=== PATIENT | female | born 1965 | race American Indian/Alaskan Native ===

== ENCOUNTER 2021-02-06 13:12 | Inpatient (IN) | payer MEDICAID, MEDICARE ==
[2021-02-06] VITALS (12 sets, daily range): BP systolic 140–198; BP diastolic 47–111
[~2021-02-06] VITALS: Ht 162.6 cm; Wt 83.4 kg
[2021-02-06] MEDS ORDERED: heparin 25,000 UNIT/250ml bag 250 ML IV SCH (13:35)
[2021-02-06] MEDS ORDERED: MYCO360T3 PO (13:49)
[2021-02-06] MEDS ORDERED: CLOP75TA34 PO (13:49)
[2021-02-06] MEDS ORDERED: ASPI-1475 PO (13:49)
[2021-02-06] MEDS ORDERED: ERGO500054 PO (13:49)
[2021-02-06] MEDS ORDERED: TACR0.5C20 PO (13:49)
[2021-02-06] MEDS ORDERED: FURO20TA4 PO (13:49)
[2021-02-06] MEDS ORDERED: TACR0.5C3 PO (13:49)
[2021-02-06] MEDS ORDERED: PRAV40TA3 PO (13:49)
[2021-02-06] MEDS ORDERED: OMEP-50 PO (13:49)
--- NOTE | 2021-02-06 13:57 | NUR ---
MD STATES TO START HEPARIN AT 1000UNITS/HR AND DRAW PPT NOW
[2021-02-06 14:06] LABS: BASOPHILS # (AUTO) 0.1 X10'3 (0-0.2); EOSINOPHILS # (AUTO) 0.1 X10'3 (0-0.9); EOSINOPHILS % (AUTO) 1.3 % (0-6); HEMOGLOBIN 14.3 g/dl (12.0-16.0); LYMPHOCYTES # (AUTO) 2.3 X10'3 (1.1-4.8); MEAN CORPUSCULAR HEMOGLOBIN 30.2 PG (27.0-31.0); MEAN CORPUSCULAR HGB CONC 33.2 g/dL (33.0-36.5); MEAN PLATELET VOLUME 9.4 FL (7.4-10.4); MONOCYTES # (AUTO) 0.9 X10'3 (0-0.9); MONOCYTES % (AUTO) 8.7 % (2-12); NEUTROPHILS # (AUTO) 7.1 X10'3 (1.8-7.7); PLATELET COUNT 244 X10'3 (140-440); RED BLOOD COUNT 4.73 X10'6 (4.20-5.60); RED CELL DISTRIBUTION WIDTH 14.7 % (11.5-14.5); WHITE BLOOD COUNT 10.7 X10'3 (4.5-11.0)
[2021-02-06 14:19] LABS: PARTIAL THROMBOPLASTIN TIME 59 SECONDS (22-32)
[2021-02-06 14:21] LABS: ALANINE AMINOTRANSFERASE 31 U/L (12-78); ALBUMIN 2.3 G/DL (3.4-5.0); ALBUMIN/GLOBULIN RATIO 0.6 (1.1-1.5); ALKALINE PHOSPHATASE 109 IU/L (46-116); ANION GAP 10 (8-16); ASPARTATE AMINO TRANSFERASE 45 U/L (10-37); BILIRUBIN,TOTAL 0.4 MG/DL (0.1-1.0); BLOOD UREA NITROGEN 17 MG/DL (7-18); BUN/CREATININE RATIO 9.6 (6.6-38.0); CALCIUM 8.4 MG/DL (8.5-10.1); CHLORIDE 111 MMOL/L (99-107); CREATININE 1.78 MG/DL (0.40-0.90); GLUCOSE 102 MG/DL (70-104); POTASSIUM 3.7 MMOL/L (3.5-5.1); SODIUM 143 MMOL/L (135-145); TOTAL CARBON DIOXIDE 22.5 MMOL/L (24-32); TOTAL PROTEIN 6.1 G/DL (6.4-8.2); eGFR 29 ML/MIN
[2021-02-06 14:27] LABS: MAGNESIUM 1.9 MG/DL (1.5-2.4)
[2021-02-06] MEDS ORDERED: normal saline 1000ML IV soln IVB ONE (14:40)
[2021-02-06] MEDS ORDERED: normal saline 1000ml 1,000 ML IV ONE (14:40)
[2021-02-06] MEDS ORDERED: midazolam 1 mg/ML 2ml injection ONE ×2 (15:01→15:44)
[2021-02-06] MEDS ORDERED: fentaNYL/PF 50MCG/1 ML 2ML syringe ONE (15:01)
[2021-02-06] MEDS ORDERED: iohexol 350 MG/ML 50ML vial IV ONE (15:01)
[2021-02-06] MEDS ORDERED: LIDOcaine 1% (10mg/ml)w/preservative injection 20ml MDV ONE (15:01)
[2021-02-06] MEDS ORDERED: heparin 1,000unit/ml 10ml vial 10 ML ONE (15:01)
[2021-02-06] MEDS ORDERED: iohexol 350MG/ML 100ml bottle IV ONE (15:02)
[2021-02-06] MEDS ORDERED: nitroGLYCERIN-Tridil 50MG/D5W 250 ML IV ONE (15:36)
[2021-02-06] MEDS ORDERED: proCHLORperazine 10 MG/2 ml inj IV PRN (17:15)
[2021-02-06] MEDS ORDERED: ondansetron/PF 4mg/2ml inj IV PRN (17:15)
[2021-02-06] MEDS ORDERED: nitroGLYCERIN 0.4mg SUBLingual tab SL PRN (17:15)
[2021-02-06] MEDS ORDERED: HYDROcodone/acetaminophen 5mg/325mg tablet PO PRN (17:15)
[2021-02-06] MEDS ORDERED: OXAZEpam 15mg capsule PO PRN (17:15)
[2021-02-06] MEDS ORDERED: HYDROcodone/acetaminophen 10/325mg tab PO PRN (17:15)
[2021-02-06] MEDS ORDERED: aspirin 81mg tab.chew PO ONE (17:18)
[2021-02-06] MEDS ORDERED: aspirin 81mg tab.chew PO SCH (17:18)
[2021-02-06] MEDS ORDERED: cyclobenzaprine 10mg tablet PO PRN (17:20)
[2021-02-06] MEDS ORDERED: magnesium hydroxide 30ml (MOM) UD suspension PO PRN (17:20)
[2021-02-06] MEDS ORDERED: acetaminophen 325mg tablet PO PRN ×2 (17:20)
[2021-02-06] MEDS ORDERED: morphine 4 MG/ML inj SYRINge IV PRN ×2 (17:25)
[2021-02-06] MEDS ORDERED: furosemide 20MG tablet PO PRN (17:30)
--- NOTE | 2021-02-06 18:49 | NUR ---
Problems reprioritized. Patient report given, questions answered & plan of care reviewed with ERON Kenny.
--- NOTE | 2021-02-06 19:35 | NUR ---
TROPONIN AND EKG CANCELLED IN ORDERS, ARUN FROM LAB STATED THAT THEY WERE CANCELLED REMOTELY AND THEY WERE NOT REQUIRED.
[2021-02-06] MEDS: docusate sod 100mg capsule PO SCH (20:00)
[2021-02-06] MEDS ORDERED: loperamide 2mg capsule PO PRN (21:35)
[2021-02-06] MEDS: mycophenolate sod SR tablet 180 MG TABLET.DR PO SCH (21:42)
[2021-02-06] MEDS: tacrolimus anhydrous 0.5mg capsule PO SCH (21:44)
[2021-02-06] MEDS: metoprolol succinate 25mg (24-HOUR) SR. Tablet PO SCH (21:44)
--- NOTE | 2021-02-06 22:30 | NUR ---
PT GOT UP AND USED RESTROOM WHILE ON POSTOP CATH PRECAUTIONS.
[2021-02-07 02:00] VITALS: BP 139/54
--- NOTE | 2021-02-07 06:20 | NUR ---
Patient in room MED 309. I have received report from ERON Kenny and had the opportunity to ask questions and assume patient care.
--- NOTE | 2021-02-07 06:30 | NUR ---
Problems reprioritized. Patient report given, questions answered & plan of care reviewed with MACKENZIE/WARREN-ERON.
--- NOTE | 2021-02-07 06:42 | NUR ---
Patient in room MED 309. I have received report from ERON SIN, and had the opportunity to ask questions and assume patient care.
[2021-02-07 06:47] VITALS: BP 158/53
[2021-02-07] MEDS ORDERED: aspirin 81mg tablet.DR PO SCH (08:00)
[2021-02-07] MEDS: enoxaparin 30mg/0.3ml syringe SQ SCH (08:40)
[2021-02-07] MEDS: pravastatin 40mg tablet PO SCH (08:41)
[2021-02-07] MEDS: docusate sod 100mg capsule PO SCH ×2 (08:41→20:00)
[2021-02-07] MEDS: metoprolol succinate 25mg (24-HOUR) SR. Tablet PO SCH ×2 (08:41→19:36)
[2021-02-07] MEDS: mycophenolate sod SR tablet 180 MG TABLET.DR PO SCH ×2 (08:41→19:36)
[2021-02-07] MEDS: aspirin 81mg tablet.DR PO SCH (08:43)
[2021-02-07] MEDS: pantoprazole 40mg Tablet.DR PO SCH (08:43)
[2021-02-07 10:00] LABS: BASOPHILS # (AUTO) 0.1 X10'3 (0-0.2); BASOPHILS % (AUTO) 1.1 % (0-1); EOSINOPHILS # (AUTO) 0.2 X10'3 (0-0.9); HEMOGLOBIN 13.6 g/dl (12.0-16.0); LYMPHOCYTES # (AUTO) 1.7 X10'3 (1.1-4.8); LYMPHOCYTES % (AUTO) 21.1 % (21-51); MEAN CORPUSCULAR HEMOGLOBIN 30.1 PG (27.0-31.0); MEAN CORPUSCULAR HGB CONC 33.1 g/dL (33.0-36.5); MEAN CORPUSCULAR VOLUME 90.8 FL (78-98); MEAN PLATELET VOLUME 9.1 FL (7.4-10.4); MONOCYTES # (AUTO) 0.7 X10'3 (0-0.9); MONOCYTES % (AUTO) 8.4 % (2-12); NEUTROPHILS # (AUTO) 5.3 X10'3 (1.8-7.7); NEUTROPHILS % (AUTO) 67.4 % (42-75); PLATELET COUNT 202 X10'3 (140-440); RED BLOOD COUNT 4.52 X10'6 (4.20-5.60); RED CELL DISTRIBUTION WIDTH 14.7 % (11.5-14.5); WHITE BLOOD COUNT 7.9 X10'3 (4.5-11.0)
[2021-02-07 10:22] LABS: ALANINE AMINOTRANSFERASE 23 U/L (12-78); ALBUMIN/GLOBULIN RATIO 0.5 (1.1-1.5); ALKALINE PHOSPHATASE 103 IU/L (46-116); ANION GAP 12 (8-16); ASPARTATE AMINO TRANSFERASE 36 U/L (10-37); BILIRUBIN,TOTAL 0.3 MG/DL (0.1-1.0); BLOOD UREA NITROGEN 15 MG/DL (7-18); BUN/CREATININE RATIO 7.7 (6.6-38.0); CALCIUM 8.4 MG/DL (8.5-10.1); CHLORIDE 108 MMOL/L (99-107); CREATININE 1.96 MG/DL (0.40-0.90); GLUCOSE 196 MG/DL (70-104); MAGNESIUM 1.6 MG/DL (1.5-2.4); PHOSPHORUS 3.7 MG/DL (2.3-4.5); POTASSIUM 3.8 MMOL/L (3.5-5.1); SODIUM 140 MMOL/L (135-145); TOTAL CARBON DIOXIDE 20.5 MMOL/L (24-32); TOTAL PROTEIN 5.7 G/DL (6.4-8.2); eGFR 26 ML/MIN
[2021-02-07 11:00] VITALS: BP 156/84
[2021-02-07] MEDS: tacrolimus anhydrous 0.5mg capsule PO SCH ×2 (11:05→19:35)
--- NOTE | 2021-02-07 11:10 | NUR ---
DM consult: Pt with A1c 6.6%, DM education not warranted at this time. Will continue to follow. Addendum: 02/07/21 at [address] Amended: Links added.
--- NOTE | 2021-02-07 13:30 | NUR ---
Per MD Benton - no need for ACHS accuchecks at this time d/t AIC 6.6.
[2021-02-07 15:00] VITALS: BP 136/62
[2021-02-07 18:00] VITALS: BP 164/81
--- NOTE | 2021-02-07 18:21 | NUR ---
Patient in room MED 310. I have received report from Amanda/Dianna-ERON and had the opportunity to ask questions and assume patient care.
--- NOTE | 2021-02-07 18:22 | NUR ---
Problems reprioritized. Patient report given, questions answered & plan of care reviewed with ERON SIN.
--- NOTE | 2021-02-07 18:22 | NUR ---
[place] documentation: I have reviewed and agree with all interventions, assessments performed and documented by ERON Bustamante.
[2021-02-07] MEDS: clopidogrel 75mg tablet PO SCH (19:35)
[2021-02-07 21:06] LABS: CLARITY,URINE CLEAR (Clear); COLOR,URINE YELLOW (Yellow); GLUCOSE, URINE 100 mg/dl (Neg); KETONES,URINE NEGATIVE (Neg); LEUKOCYTE ESTERASE ,URINE NEGATIVE (Neg); NITRITES, URINE NEGATIVE (Neg); OCCULT BLOOD,URINE TRACE-INTACT (Neg); PH,URINE 6.5 (4.8-8.0); PROTEIN,URINE >=300 mg/dl (Neg); UROBILINOGEN,URINE 0.2 E.U/dL (0.2-1.0)
[2021-02-07 21:12] LABS: UA COLLECTION TYPE NON-SPECIFIED
[2021-02-07 21:13] LABS: BACTERIA,URINE NONE SEEN /HPF (Neg); RBC,URINE 0-2 /HPF (0-2); SQUAMOUS EPITHELIAL CELL,UR FEW /LPF (FEW); WBC,URINE 0-4 /HPF (0-4)
[2021-02-07 21:26] LABS: TOTAL PROTEIN,URINE RANDOM 491.6 MG/DL
[2021-02-07 21:39] LABS: UA EOSINOPHILS NO EOS /HPF
[2021-02-07 22:00] VITALS: BP 149/50
[2021-02-08] VITALS (7 sets, daily range): BP systolic 117–182; BP diastolic 55–94
[2021-02-08 06:18] LABS: BASOPHILS # (AUTO) 0.1 X10'3 (0-0.2); BASOPHILS % (AUTO) 1.4 % (0-1); EOSINOPHILS # (AUTO) 0.3 X10'3 (0-0.9); EOSINOPHILS % (AUTO) 3.5 % (0-6); HEMATOCRIT 40.3 % (35.0-45.0); HEMOGLOBIN 13.2 g/dl (12.0-16.0); LYMPHOCYTES # (AUTO) 2.4 X10'3 (1.1-4.8); LYMPHOCYTES % (AUTO) 31.3 % (21-51); MEAN CORPUSCULAR HEMOGLOBIN 30.1 PG (27.0-31.0); MEAN CORPUSCULAR HGB CONC 32.7 g/dL (33.0-36.5); MEAN CORPUSCULAR VOLUME 91.9 FL (78-98); MEAN PLATELET VOLUME 9.7 FL (7.4-10.4); MONOCYTES # (AUTO) 0.9 X10'3 (0-0.9); MONOCYTES % (AUTO) 11.8 % (2-12); NEUTROPHILS # (AUTO) 4.1 X10'3 (1.8-7.7); PLATELET COUNT 218 X10'3 (140-440); RED BLOOD COUNT 4.39 X10'6 (4.20-5.60); RED CELL DISTRIBUTION WIDTH 14.6 % (11.5-14.5); WHITE BLOOD COUNT 7.8 X10'3 (4.5-11.0)
[2021-02-08 06:30] LABS: ALANINE AMINOTRANSFERASE 22 U/L (12-78); ALBUMIN 1.9 G/DL (3.4-5.0); ALBUMIN/GLOBULIN RATIO 0.5 (1.1-1.5); ALKALINE PHOSPHATASE 93 IU/L (46-116); ANION GAP 11 (8-16); ASPARTATE AMINO TRANSFERASE 26 U/L (10-37); BILIRUBIN,TOTAL 0.3 MG/DL (0.1-1.0); BLOOD UREA NITROGEN 15 MG/DL (7-18); BUN/CREATININE RATIO 7.3 (6.6-38.0); CALCIUM 8.4 MG/DL (8.5-10.1); CHLORIDE 110 MMOL/L (99-107); CREATININE 2.05 MG/DL (0.40-0.90); GLUCOSE 96 MG/DL (70-104); MAGNESIUM 1.8 MG/DL (1.5-2.4); PHOSPHORUS 3.5 MG/DL (2.3-4.5); POTASSIUM 3.5 MMOL/L (3.5-5.1); SODIUM 141 MMOL/L (135-145); TOTAL CARBON DIOXIDE 20.1 MMOL/L (24-32); TOTAL PROTEIN 5.7 G/DL (6.4-8.2); eGFR 25 ML/MIN
--- NOTE | 2021-02-08 07:00 | NUR ---
Problems reprioritized. Patient report given, questions answered & plan of care reviewed with Pat-RN.
[2021-02-08] MEDS: clopidogrel 75mg tablet PO SCH (07:49)
[2021-02-08] MEDS: aspirin 81mg tablet.DR PO SCH (07:50)
[2021-02-08] MEDS: pravastatin 40mg tablet PO SCH (07:51)
[2021-02-08] MEDS: pantoprazole 40mg Tablet.DR PO SCH (07:52)
[2021-02-08] MEDS: metoprolol succinate 25mg (24-HOUR) SR. Tablet PO SCH ×2 (07:52→20:51)
[2021-02-08] MEDS: docusate sod 100mg capsule PO SCH ×2 (07:56→20:51)
[2021-02-08] MEDS: mycophenolate sod SR tablet 180 MG TABLET.DR PO SCH ×2 (08:00→20:51)
[2021-02-08] MEDS: enoxaparin 30mg/0.3ml syringe SQ SCH (08:01)
[2021-02-08] MEDS: tacrolimus anhydrous 0.5mg capsule PO SCH ×2 (14:08→20:51)
--- NOTE | 2021-02-08 18:00 | NUR ---
Patient in room MED 309. I have received report from Jasmine LITTLEJOHN and had the opportunity to ask questions and assume patient care.
[2021-02-09 02:08] VITALS: BP 169/61
--- NOTE | 2021-02-09 02:16 | NUR ---
desreguard 1000 ml output at 0215 was documented in error on wrong pt
--- NOTE | 2021-02-09 02:56 | NUR ---
Pt supposed to go to [facility]. was told in report that pt had a bed. Paperwork was sent over via fax and spoke to Corrine (nursing forest supervisor) from facility after report was received from day shift. When I called to confirm for bed availability, Corrine mentioned that there is not bed ready yet for the patient but they will most likely have one the next day. Notified sand caster apprentice Jude about this and will pass this on to the morning RN
[2021-02-09 06:00] VITALS: BP 143/72
--- NOTE | 2021-02-09 06:08 | NUR ---
Problems reprioritized. Patient report given, questions answered & plan of care reviewed with Carolyn LITTLEJOHN.
[2021-02-09 06:11] LABS: BASOPHILS # (AUTO) 0.1 X10'3 (0-0.2); EOSINOPHILS # (AUTO) 0.3 X10'3 (0-0.9); HEMATOCRIT 40.3 % (35.0-45.0); HEMOGLOBIN 13.6 g/dl (12.0-16.0); LYMPHOCYTES # (AUTO) 2.1 X10'3 (1.1-4.8); MEAN CORPUSCULAR HEMOGLOBIN 31.1 PG (27.0-31.0); MEAN CORPUSCULAR HGB CONC 33.8 g/dL (33.0-36.5); MONOCYTES # (AUTO) 0.8 X10'3 (0-0.9); MONOCYTES % (AUTO) 10.6 % (2-12); NEUTROPHILS # (AUTO) 3.9 X10'3 (1.8-7.7); NEUTROPHILS % (AUTO) 54.4 % (42-75); PLATELET COUNT 215 X10'3 (140-440); RED BLOOD COUNT 4.38 X10'6 (4.20-5.60); RED CELL DISTRIBUTION WIDTH 14.1 % (11.5-14.5); WHITE BLOOD COUNT 7.1 X10'3 (4.5-11.0)
[2021-02-09 06:39] LABS: ALANINE AMINOTRANSFERASE 15 U/L (12-78); ALBUMIN/GLOBULIN RATIO 0.5 (1.1-1.5); ALKALINE PHOSPHATASE 92 IU/L (46-116); ANION GAP 11 (8-16); ASPARTATE AMINO TRANSFERASE 22 U/L (10-37); BILIRUBIN,TOTAL 0.2 MG/DL (0.1-1.0); BLOOD UREA NITROGEN 17 MG/DL (7-18); BUN/CREATININE RATIO 8.6 (6.6-38.0); CALCIUM 8.5 MG/DL (8.5-10.1); CHLORIDE 109 MMOL/L (99-107); CREATININE 1.97 MG/DL (0.40-0.90); GLUCOSE 132 MG/DL (70-104); MAGNESIUM 1.9 MG/DL (1.5-2.4); PHOSPHORUS 3.7 MG/DL (2.3-4.5); POTASSIUM 3.7 MMOL/L (3.5-5.1); SODIUM 141 MMOL/L (135-145); TOTAL CARBON DIOXIDE 20.7 MMOL/L (24-32); TOTAL PROTEIN 5.7 G/DL (6.4-8.2); eGFR 26 ML/MIN
[2021-02-09] MEDS: clopidogrel 75mg tablet PO SCH (09:47)
[2021-02-09] MEDS: aspirin 81mg tablet.DR PO SCH (09:47)
[2021-02-09] MEDS: pantoprazole 40mg Tablet.DR PO SCH (09:47)
[2021-02-09] MEDS: mycophenolate sod SR tablet 180 MG TABLET.DR PO SCH (09:47)
[2021-02-09] MEDS: docusate sod 100mg capsule PO SCH (09:48)
[2021-02-09] MEDS: metoprolol succinate 25mg (24-HOUR) SR. Tablet PO SCH (09:48)
[2021-02-09] MEDS: pravastatin 40mg tablet PO SCH (09:48)
[2021-02-09] MEDS: enoxaparin 30mg/0.3ml syringe SQ SCH (09:49)
[2021-02-09] MEDS: tacrolimus anhydrous 0.5mg capsule PO SCH (09:56)
[2021-02-09] MEDS ORDERED: ergocalciferol (vit D2) capsule 50,000 UNITS (1,250mcg) CAPSULE PO SCH (10:00)
[2021-02-09 11:00] VITALS: BP 149/71
--- NOTE | 2021-02-09 11:28 | NUR ---
Paged Dr. Benton regarding patient wanting to leave AMA or be discharged. PAGER ID: [phone] MESSAGE: [phone]. Aziza Nelson. Patient wants to leave AMA or be discharged home. Thank you. Lorelei LITTLEJOHN x [phone]
[2021-02-09] MEDS ORDERED: METO-395 PO (11:38)
[2021-02-09] MEDS ORDERED: CLOP75TA34 PO (11:57)
== END 2021-02-09 15:10 | disposition short-term general hospital (02) | DRG 190 ==
LOC: ER 13:12 → MED 3N 16:48
PROVIDERS: ADMIT Internal Medicine Cardiovascular Disease; ATTEND Internal Medicine Cardiovascular Disease
PROC: 4A023N7 Measurement of Cardiac Sampling and Pressure, Left Heart, Percutaneous Approach (ICD-10-PCS; principal; 2021-02-06)
PROC: B2151ZZ Fluoroscopy of Left Heart using Low Osmolar Contrast (ICD-10-PCS; 2021-02-06)
PROC: B2111ZZ Fluoroscopy of Multiple Coronary Arteries using Low Osmolar Contrast (ICD-10-PCS; 2021-02-06)
PROC: B2181ZZ Fluoroscopy of Left Internal Mammary Bypass Graft using Low Osmolar Contrast (ICD-10-PCS; 2021-02-06)
DX: I21.4 Non-ST elevation (NSTEMI) myocardial infarction (principal); E11.40 Type 2 diabetes mellitus with diabetic neuropathy, unspecified; E11.22 Type 2 diabetes mellitus with diabetic chronic kidney disease; Z94.83 Pancreas transplant status; E78.5 Hyperlipidemia, unspecified; I12.9 Hypertensive chronic kidney disease with stage 1 through stage 4 chronic kidney disease, or unspecified chronic kidney disease; N18.9 Chronic kidney disease, unspecified; K21.9 Gastro-esophageal reflux disease without esophagitis; I25.10 Atherosclerotic heart disease of native coronary artery without angina pectoris; I25.2 Old myocardial infarction; Z88.5 Allergy status to narcotic agent; Z90.49 Acquired absence of other specified parts of digestive tract; Z94.0 Kidney transplant status; Z88.8 Allergy status to other drugs, medicaments and biological substances; Z79.899 Other long term (current) drug therapy; Z79.82 Long term (current) use of aspirin; Z91.011 Allergy to milk products
CPT/HCPCS: 36415; 71045; 80053; 81001; 82570; 82948; 83036; 83735; 83880; 84100; 84156; 84300; 84484; 85025; 85347; 85610; 85730; 87081; 87207; 93005; 93458; 93459; 93880; 93971; 96361; 96365; 99152; 99153; 99291; A4620; A6258; C1760; C1769; G0378; J1644; J1650; J2001; J2250; J3010; J3490; J7030; J7507; J7518; Q9967